=== PATIENT | female | born 1930 | race Caucasian/White ===

== ENCOUNTER 2016-11-17 06:25 | Day surgery (SDC) | payer OTHER ==
[~2016-11-17] VITALS: Ht 167.6 cm; Wt 72.0 kg
[2016-11-17] MEDS ORDERED: IOHEXOL 350 MG/ML 100 ML BTL (for Cath Lab) OTHER ONE (06:26)
[2016-11-17 07:21] VITALS: BP 125/73; PULSE 65; RESP 16; TEMP 98.2; O2SAT 94
[2016-11-17 07:31] LABS: AUTOMATED NEUTROPHIL # 3.7 TH/MM3 (1.8-7.7); BASOPHIL % 0.3 % (0.0-2.0); EOSINOPHIL # 0.1 TH/MM3 (0-0.4); HEMATOCRIT 35.2 % (35.0-46.0); HEMO FLAGS DIFF FINAL; LYMPH % 24.3 % (9.0-44.0); LYMPHOCYTE # 1.4 TH/MM3 (1.0-4.8); MEAN CELL VOLUME 85.2 FL (80.0-100.0); MEAN CORPUSCULAR HGB CONC 32.9 % (32.0-36.0); MONO % 10.9 % (0.0-8.0); NEUT % 63.5 % (16.0-70.0); PLATELET COUNT 131 TH/MM3 (150-450); RED BLOOD COUNT 4.13 MIL/MM3 (4.00-5.30); RED CELL DISTRIBUTION WIDTH 15.8 % (11.6-17.2); WHITE BLOOD COUNT 5.8 TH/MM3 (4.0-11.0)
[2016-11-17] MEDS ORDERED: SUCR1TAB PO (07:37)
[2016-11-17] MEDS ORDERED: ASPI81TA81 (07:37)
[2016-11-17] MEDS ORDERED: PANT40TA3 PO (07:37)
[2016-11-17] MEDS ORDERED: BUME0.5T PO (07:37)
[2016-11-17] MEDS ORDERED: VITA250T3 PO (07:37)
[2016-11-17] MEDS ORDERED: NITR1SUB3 SL (07:37)
[2016-11-17] MEDS ORDERED: HYDR-3580 PO (07:37)
[2016-11-17] MEDS ORDERED: ATOR20TA15 PO (07:37)
[2016-11-17] MEDS ORDERED: LOSA100T PO (07:37)
[2016-11-17] MEDS ORDERED: METF500T PO (07:37)
[2016-11-17] MEDS ORDERED: ALPR0.5T3 PO (07:37)
[2016-11-17] MEDS ORDERED: CARV25TA PO (07:37)
[2016-11-17] MEDS ORDERED: TYLE325T PO (07:37)
[2016-11-17] MEDS ORDERED: VITA2000 PO (07:37)
[2016-11-17] MEDS ORDERED: FERR325T8 PO (07:37)
[2016-11-17 07:38] LABS: APTT (PATIENT) 26.1 SEC (24.3-30.1); PROTHROMBIN TIME - PATIENT 11.2 SEC (9.8-11.6)
[2016-11-17 07:49] LABS: BICARBONATE 26.6 MEQ/L (21.0-32.0); POTASSIUM 3.7 MEQ/L (3.5-5.1)
[2016-11-17 08:15] LABS: BACTERIA, URINE MOD /hpf; BLOOD, URINE TRACE (NEG); COMMENT (UR) CULTURE INDICATED; CULTURE IF INDICATED CULTURE INDICATED; GLUCOSE,URINE NEG (NEG); HYALINE CAST, URINE 1 /lpf (RARE); KETONE, URINE NEG (NEG); MUCUS URINE FEW /lpf (OCC); NITRITE,URINE NEG (NEG); RENAL EPITHELIAL CELLS <1 /hpf; SQUAMOUS EPITHELIAL CELL URINE 3 /hpf (0-5); TRANSITIONAL EPI CELLS, URINE <1 /hpf; URINE COLOR YELLOW (YELLW/STRAW)
[2016-11-17] MEDS ORDERED: diphenhydrAMINE HCL 50 MG CAP PO SCH (08:15)
[2016-11-17] MEDS ORDERED: NS 1000P @30 MLS/HR (KVO) IV SCH (08:15)
[2016-11-17] MEDS ORDERED: HEPARIN-NS/PF INJ 1,000 ML ONE (09:18)
[2016-11-17] MEDS ORDERED: MIDAZOLAM HCL 2 MG/2 ML VIAL ONE (09:19)
[2016-11-17] MEDS ORDERED: NITROGLYCERIN INJ 5 ML ONE (09:19)
[2016-11-17] MEDS ORDERED: VERAPAMIL HCL 5 MG/2 ML VIAL ONE (09:19)
[2016-11-17] MEDS ORDERED: HEPARIN SODIUM - IV 10,000 UNITS/10 ML VIAL ONE (09:19)
--- NOTE | 2016-11-17 10:08 | RADRPT ---
EXAM DATE/TIME: 11/17/2016 08:40 [place] COMPARISON: No previous studies available for comparison. INDICATIONS : Pre op TAVR. MEDICAL HISTORY : Hypertension. Diabetes mellitus type II. SURGICAL HISTORY : Pacemaker. CABG. TAVR. ENCOUNTER: Initial ACUITY: 1 day PAIN SCORE: 0/10 LOCATION: Bilateral chest FINDINGS: The lungs are clear without infiltrate, nodule, or mass. There is no appreciable pleural effusion fo r technique. Heart and mediastinum are unremarkable. Left subclavian transvenous pacer wires are pre sent with tips in the right atrium and right ventricle. There is evidence for prior median sternotomy . CONCLUSION: No acute cardiopulmonary disease. Misael Hearn MD on November 17, 2016 at 9:59 Board Certified Radiologist. This report was verified electronically.
[2016-11-17] MEDS ORDERED: SODIUM CHLOR 0.9% 1000 ML INJ 1,000 ML IV SCH (10:20)
--- NOTE | 2016-11-17 10:20 | CATHPROC ---
[facility] HIS Report Study Information Study Number Admission Scheduled Start Study Start [id number] Nov 17 2016 6:25AM 11/17/2016 Nov 17 2016 9:14AM Study Type [place] Service Left/Possible PCI Cardiac Catheterization Admit Source Facility Department Other [facility] - Picture Copyist Physician and Clinical Staff Initial MD Peralta, Keanu Esthetician Makeup Artist Jacquelin Ramirez,RN Additional Keanu Fernando Recorder Alyssa Covarrubias,RT(R) Scrub Kenji Reddy RCIS(BS) Procedures Performed Procedure Location (Site) Vessel Name Coronary Angiograms LCA Left Coronary Coronary Angiograms RCA Right Coronary Coronary Angiograms THOMAS-LAD Left Coronary Coronary Angiograms SVG-OM CIRC Coronary Angiograms SVG-RCA Right Coronary L Heart Cath Wire insertion Radial (left) Radial Art. Equipment Time Sand Caster Apprentice Description Size Mfg Part Number Used/Scraped TRANSDUCER, TRUWAVE [id number] 09:26 ALEXIS DE DIOS * Used W/STOCKCOCK *[id number] [id number] *[id number] 534-518T *[id number] [id number] *[id number] [id number] *[id number] [id number] *[id number] 09:26 [employer] PACK, CCL CUSTOM * Used *[id number] 09:26 [employer] SUPPORT, ARTERIAL ADULT 94869 *[id number] Used BAND, RADIAL COMPRESSION TR [id number] 10:03 [employer] MEDICAL 29CM Used LARGE 29 *[id number] 09:26 [employer] WIRE, 3MMJ .035 180CM 180CM Used *[id number] 09:26 NAMIC MANIFOLD, 4 PORT * Used *[id number] 09:26 [employer] OMNIPAQUE, 350 MG, 150ML 150ML [id number] Used [id number] 09:26 [employer] BLANKET,WARM AIR CCL * Used *[id number] SHEATH, FR6 TRANSRADIAL RM*[id number] 09:26 [employer] FR 6 Used SLENDER 10CM *[id number] History: Current Medications Medication Dosage/Unit Route Frequency Last Date/Time Taken ASA Statins (any) Beta Mary History: Risk Factors Family History of Hypertension Dyslipidemia Previous SD Previous Heart Failure Premature CAD Yes Yes Yes No No Prior Valve Prior PCI Prior CABG Prior CABGDate Surgery No No Yes 03/12/2012 Cerebrovascular Peripheral Artery Chronic Lung On Dialysis Diabetes Diabetes Therapy Disease Disease Disease No No No No Yes Oral History: Stress Tests Stress or Imaging Studies Performed No Labs Hgb (g/dl) Hct (%) WBC (l/cumm) Platelets (thousands) 11.60-17.00 35.00-51.00 4.00-11.00 150.00-450.00 11.6 35.2 5.8 131 Glucose (mg/dl) BUN (mg/dl) Creatinine (mg/dl) BUN:Creatinine (1:x) 74.00-106.00 7.00-18.00 0.50-1.30 10.00-20.00 163 17 1.0 17 Na (meq/l) K (meq/l) 136.00-145.00 3.50-5.10 140 3.7 INR (PTT:PT) 0.90-1.10 1 CPK-MB (ng/ML) 0.50-3.60 Not Drawn Medication Medication Total Dose (Bolus/Oral) Medication Total Dosage/Unit 1% XYLOCAINE 20 mL FENTANYL 25 mcg OXYGEN 2 l/min RADIAL COCKTAIL 5 mL (Bolus) VERSED 1 mg Medications (Bolus/Oral) Medication Time Given Dosage/Unit Administered By Reason OXYGEN 11/17/2016 9:35:51 AM 2 l/min Jacquelin Ramirez 2 l/min OXYGEN given by Jacquelin Ramirez, CONRADO via Nasal. Ordered by Keanu Peralta. VERSED 11/17/2016 9:44:23 AM 1 mg Jacquelin Ramirez 1 mg VERSED given by Jacquelin Ramirez, CONRADO via Peripheral IV. Ordered by Keanu Peralta. 1% XYLOCAINE 11/17/2016 9:45:07 AM 20 mL Keanu Peralta 20 mL 1% XYLOCAINE given in lab by Keanu Peralta in Left Radial via Subcutaneous. FENTANYL 11/17/2016 9:45:33 AM 25 mcg Jacquelin Ramirez 25 mcg FENTANYL given by Jacquelin Ramirez, CONRADO via Peripheral IV. Ordered by Keanu Peralta. Ntg 200mcg Verapamil 2.5mg Heparin RADIAL COCKTAIL 11/17/2016 9:47:30 AM 5 mL (Bolus) Keanu Peralta 2500U 5 mL (Bolus) RADIAL COCKTAIL given in lab by Keanu Peralta via Radial. Using [Solution Name]. Heidy son: Ntg 200mcg Verapamil 2.5mg Heparin 2500U. Medication (Drip) Medication Time Given Dosage/Unit Concentration/Unit Diluent (ml) Solution IV Solutions 11/17/2016 9:29:19 AM 0 mL (IV) 500 NaCl .9 Patient arrived on IV Solutions in Left Antecubital via Peripheral IV. Pump/Drip Flow = 20 ml/hr usin g NaCl .9. Ordered by Keanu Peralta. Initial Case Assessment Cardiovascular HR Rhythm NIBP Chest Pain 73 paced 144/66 0 Edema Present Skin color Skin None Normal Warm Circulatory - Right Pulses Dorsalis Pedis Femoral 2 2 Scale (0,1,2,3,4,d) Circulatory - Left Pulses Dorsalis Pedis Femoral 2 2 Scale (0,1,2,3,4,d) Circulatory - Lower Extremities Color Lower Right Color Lower Left Normal Normal Neurological State Oriented to time-place- Alert Moves all extremities person Respiration - General Respiration Rate SpO2 (%) (B/min) 18 95 Chronological Log Time Study Chronological Log 9:05:35 Patient arrived via Bed. 9:05:40 Patient Name, D.O.B, / Armband Verified By R.N. 9:06:47 Pre-op and post- op instructions given; patient acknowledges understanding of instructions . 9:14:27 Reference ECG taken 9:14:45 Consent signed by the physician and the patient and verified by the Picture Copyist staff. Vitals capture started with the following parameters, Patient=Adult, Interval=5 min, Initial Czbzxqsz=860 mmHg, 9:14:53 Deflation Rate=5 mmHg, Cuff placed on Right Arm 9:15:32 HR=77 bpm, JYBX=073/76 mmhg, SpO2=95 %, Resp=8 B/min, Pain=0, Bonita=10, Roque=2 9:20:35 HR=71 bpm, MDTA=612/74 mmhg, SpO2=93.0 %, Resp=19 B/min, Pain=0, Bonita=10, Roque=2 9:25:28 HR=72 bpm, DANK=170/86 mmhg, SpO2=92.0 %, Resp=18 B/min, Pain=0, Bonita=10, Roque=2 9:27:26 Verbal Stimulation=2 Physical Stimulation=2 Airway=2 Respiration=2 TOTAL=8. (0=absent, 1=l imited, 2=present) 9:27:46 Allens test performed on the left radial and ulnar artery by Sudeep with a positive result 9:28:05 Pressure channel 1 zeroed. 9:29:01 Patient has been NPO for More than 6Hrs. 9:29:03 Skin Breakdown-none 9:29:09 Patient Warmer Placed on the Table. 9:29:12 A # 20 IV was noted in the Antecubital (left). Grade = 0 Patient arrived on IV Solutions in Left Antecubital via Peripheral IV. Pump/Drip Flow = 20 ml/hr using NaCl .9. Ordered 9:29:19 by Keanu Peralta. 9:29:45 History and physical on the chart or being dictated. Assessment: Initial Case, HR=73 BPM, Rhythm=paced, RVVK=279/66 mmhg, Chest Pain=0, Edema=None, Color=Normal, Skin = Warm Right Pulses: Jesu Ped=2, Femoral=2 Left Pulses: Jesu Ped=2, Femoral=2 9:29:47 Lower Right Extremities: Color=Normal Lower Left Extremities: Color=Normal Neurological: State=Alert, Ox3, DAMON Respiration: Resp=18 B/min, SpO2=95 % 9:30:35 HR=72 bpm, DFZP=687/66 mmhg, SpO2=92.0 %, Resp=19 B/min, Pain=0, Bonita=10, Roque=2 9:33:12 Right groin prepped with 2% chlorhexidine, and with a 3 min. waiting time. 9:35:34 HR=66 bpm, XBUY=094/73 mmhg, SpO2=92.0 %, Resp=19 B/min, Pain=0, Bonita=10, Roque=2 9:35:51 2 l/min OXYGEN given by Jacquelin Ramirez, CONRADO via Nasal. Ordered by Keanu Peralta. 9:36:13 MD paged 9:40:35 HR=60 bpm, MDSZ=022/58 mmhg, SpO2=99.0 %, Resp=18 B/min, Pain=0, Bonita=10, Roque=2 9:41:43 MD arrived. 9:44:23 1 mg VERSED given by Jacquelin Ramirez, RN via Peripheral IV. Ordered by Keanu Peralta. 9:44:55 Case Start 9:44:58 Verbal Stimulation=2 Physical Stimulation=2 Airway=2 Respiration=2 TOTAL=8. (0=absent, 1=ambrose ited, 2=present) 9:45:07 20 mL 1% XYLOCAINE given in lab by Keanu Peralta in Left Radial via Subcutaneous. 9:45:33 25 mcg FENTANYL given by Jacquelin Ramirez, RN via Peripheral IV. Ordered by Keanu Peralta . 9:45:34 HR=64 bpm, LKWF=984/72 mmhg, SpO2=98.0 %, Resp=20 B/min, Pain=0, Bonita=10, Roque=2 5 mL (Bolus) RADIAL COCKTAIL given in lab by Keanu Peralta via Radial. Using [Solution Name] . Reason: Ntg 9:47:30 200mcg Verapamil 2.5mg Heparin 2500U. 9:47:33 Access site was Radial Artery. left 9:47:42 A wire was inserted via Radial (left). A SHEATH, FR6 TRANSRADIAL SLENDER 10CM FR 6 was advanced into the Radial (left) using the Percut aneous 9:47:54 technique. A JR 5.0 INFINITI CATHETER FR 5 was advanced over a wire. OMNIPAQUE, 350 MG, 150ML 150ML was use d for 9:48:25 injections. 9:50:37 HR=67 bpm, LYEP=980/66 mmhg, SpO2=95.0 %, Resp=20 B/min, Pain=0, Bonita=10, Roque=2 9:50:37 The THOMAS-LAD was injected and visualized at various angles. OMNIPAQUE, 350 MG, 150ML 150ML u sed. 9:52:48 The RCA was injected and visualized at various angles. OMNIPAQUE, 350 MG, 150ML 150ML used. After removing the current catheter a MPA-2 INFINITI CATHETER FR 5 was advanced over a WIRE, 3MM J .035 180CM 9:54:33 180CM. 9:55:34 HR=66 bpm, OQWV=860/63 mmhg, SpO2=96.0 %, Resp=19 B/min, Pain=0, Bonita=10, Roque=2 9:56:19 The SVG-RCA was injected and visualized at various angles. OMNIPAQUE, 350 MG, 150ML 150ML us ed. After removing the current catheter a JL 4.0 INFINITI CATHETER FR 5 was advanced over a WIRE, 3M MJ .035 180CM 9:59:15 180CM. Recorded Pressure: Ao, HR=60, Condition=Condition 1 9:59:53 (Aorta) Ao 117/50/75 10:00:06 The LCA was injected and visualized at various angles. OMNIPAQUE, 350 MG, 150ML 150ML use d. After removing the current catheter a AL 1 INFINITI CATHETER FR 5 was advanced over a WIRE, 3M MJ .035 180CM 10:00:24 180CM. 10:00:31 HR=68 bpm, ZAPZ=090/76 mmhg, SpO2=96.0 %, Resp=23 B/min, Pain=0, Bonita=10, Roque=2 10:02:10 The SVG-OM was injected and visualized at various angles. OMNIPAQUE, 350 MG, 150ML 150ML u sed. 10:03:22 Catheter was removed 10:04:46 Case End 10:05:34 HR=65 bpm, YIER=668/60 mmhg, SpO2=97.0 %, Resp=17 B/min, Pain=0, Bonita=10, Roque=2 Radial Compression Device Used. 12 mLs of air placed in BAND, RADIAL COMPRESSION TR LARGE 29 2 9CM. Affected 10:09:01 hand 99 % O2 saturation. 10:09:19 Sterile dressing applied to site 10:09:20 No case complications noted. 10:09:21 Cine recording checked. 10::24 Bedside Report will be given. 10::27 Contrast Scanned 10:: A Left Heart Cath was performed. 10:10:17 Vitals capture stopped. End Study - Contrast Media Used In Study Contrast Total Opened (mL) Total Used (mL) Total Wasted (mL) Omnipaque 100 100 0 End Study - Maximum Contrast Load Max Contrast Load (mL) 360.0 End Study - Radiation Exposure Fluoro Time (minutes) 2.0 End Study - Sheaths Sheaths Pulled By Sheath Hold Time (min) Kenji Reddy End Study - Patient Disposition Complications Transferred To No Outpatient Bed
[2016-11-17] MEDS ORDERED: MISC INFORMATION XX ONE (10:30)
--- NOTE | 2016-11-17 11:18 | EKG ---
Date Performed: 11/17/2016 Time Performed: 07:22:24 PTAGE: 85 years EKG: Possible ventricular paced rhythm Abnormal ECG PREVIOUS TRACING : 03/27/2002 03.00 Compared to previous tracing, ventricular paced rhythm has replaced Sinus rhythm . DOCTOR: Mirza Barbosa Interpretating Date/Time 11/17/2016 11:17:39
--- NOTE | 2016-11-17 11:35 | MA ---
cc: BALLESTEROSMahadKATIEYAMINI NICKERSON DATE 11/17/2016 DATE OF 1930 PROCEDURE PERFORMED 1. Left heart catheterization 2. Selective right and left coronary angiography 3. SVG and THOMAS angiography APPROACH Left transradial INDICATION Preoperative evaluation for aortic valve replacement. PROCEDURE DESCRIPTION Consent signed. The patient was brought into the cardiac laboratory apparatus glass blower in A fasting state. The left wrist was prepped and draped in A sterile fashion. using 1% lidocaine for local anesthesia and a micropuncture kit, a 6-[place] sheath was inserted into the left radial artery. Antispasmodic cocktail given. Then selective right and left coronary angiography was performed with a JR-4 and a JL -4 diagnostic catheters. Angiography of the saphenous vein graft and the THOMAS graft was done with a JR-4 with a multiple purpose catheter and an AL-1. Angiography was taken in multiple views. The patient tolerated the procedure well without complications. Estimated blood loss less than 30 cc. Total contrast used 80 cc. All catheters were exchanged over a wire. Sedation was administered by nursing. The left radial access site was closed with a TR band. RESULTS The aortic pressure was 170/50 with a mean of 75. 1. Left main. The left and left main has 30% lesion proximally. It is mildly calcified. It is giving off the left circumflex and LAD and a ramus vessel. 2. LAD. The LAD is 100% occluded in its mid segment. It is diffusely diseased. It has a focal 60% lesion proximally and another 50% sequential lesion. It has one diagonal which is 100% occluded. 3. The left circumflex is 100% occluded. 4. The right coronary artery is 100% occluded in its mid segment. It is giving off two RV branches which are patent, however, diffusely diseased. GRAFT ANGIOGRAPHY SVG to RCA patent, however, has a 50% lesion in its mid segment and another 90% lesion at the position with the PDA. This graft is small measuring at least 2 mm. SVG to OM. This graft is patent. It has 40% lesion proximally. This graft seems to be a sequential graft taking off at the same point where the SVG to right coronary artery is going. It is touching at the OM vessel which is patent , but diffusely diseased and is giving collaterals to the right coronary artery as well as giving retrograde flow to the left circumflex artery. THOMAS to the LAD. The THOMAS to LAD is patent with SUBHA-III flow with touching down. The LAD in its proximal segment is also giving blood flow to the first and second diagonal vessels. CONCLUSION - Severe three-vessel coronary artery disease with 3/3 graft patent grafts - Severe symptomatic aortic stenosis. RECOMMENDATIONS The patient will be evaluated with the [facility] structural heart valve team. She will go to [facility] for post cath care. She will get IV fluids for hydration and she will continue the TAVR workup. MD DAVID Alexander/BERTHA /10:09 AM /11:16 AM MTDLexii
--- NOTE | 2016-11-17 12:12 | PD.CAR.PN ---
CVT Progress Note Subjective/Hospital Course: pt seen and eval for TAVR candidate sts data discussed with pt RISK SCORES About the STS Risk Calculator Procedure: AV Replacement Risk of Mortality: 10.902% Morbidity or Mortality: 35.246% Long Length of Stay: 21.561% Short Length of Stay: 10.854% Permanent Stroke: 3.15% Prolonged Ventilation: 31.77% DSW Infection: 0.266% Renal Failure: 11.92% Reoperation: 9.281% Objective: Vital Signs Date Time Temp Pulse Resp B/P (MAP) Pulse Ox O2 Delivery O2 Flow Rate FiO2 11/17/16 07:21 98.2 65 16 125/73 (90) 94 Labs: Laboratory Tests Test 11/17/16 06:55 11/17/16 07:00 White Blood Count 5.8 TH/MM3 (4.0-11.0) Red Blood Count 4.13 MIL/MM3 (4.00-5.30) Hemoglobin 11.6 GM/DL (11.6-15.3) Hematocrit 35.2 % (35.0-46.0) Mean Corpuscular Volume 85.2 FL (80.0-100.0) Mean Corpuscular Hemoglobin 28.0 PG (27.0-34.0) Mean Corpuscular Hemoglobin Concent 32.9 % (32.0-36.0) Red Cell Distribution Width 15.8 % (11.6-17.2) Platelet Count 131 TH/MM3 (150-450) Mean Platelet Volume 8.5 FL (7.0-11.0) Neutrophils (%) (Auto) 63.5 % (16.0-70.0) Lymphocytes (%) (Auto) 24.3 % (9.0-44.0) Monocytes (%) (Auto) 10.9 % (0.0-8.0) Eosinophils (%) (Auto) 1.0 % (0.0-4.0) Basophils (%) (Auto) 0.3 % (0.0-2.0) Neutrophils # (Auto) 3.7 TH/MM3 (1.8-7.7) Lymphocytes # (Auto) 1.4 TH/MM3 (1.0-4.8) Monocytes # (Auto) 0.6 TH/MM3 (0-0.9) Eosinophils # (Auto) 0.1 TH/MM3 (0-0.4) Basophils # (Auto) 0.0 TH/MM3 (0-0.2) CBC Comment DIFF FINAL Differential Comment Prothrombin Time 11.2 SEC (9.8-11.6) Prothromb Time International Ratio 1.0 RATIO Activated Partial Thromboplast Time 26.1 SEC (24.3-30.1) Urine Color YELLOW (YELLW/STRAW) Urine Turbidity HAZY (CLEAR) Urine pH 5.0 (5.0-8.5) Urine Specific [place] 1.010 (1.002-1.035) Urine Protein NEG mg/dL (NEG-TRACE) Urine Glucose (UA) NEG mg/dL (NEG) Urine Ketones NEG mg/dL (NEG) Urine Occult Blood TRACE (NEG) Urine Nitrite NEG (NEG) Urine Bilirubin NEG (NEG) Urine Urobilinogen LESS THAN 2.0 MG/DL (LESS Urine Leukocyte Esterase LARGE (NEG) Urine RBC 6 /hpf (0-3) Urine WBC 26 /hpf (0-5) Urine WBC Clumps RARE (NONE) Urine Squamous Epithelial Cells 3 /hpf (0-5) Urine Transitional Epithelial Cells <1 /hpf (NONE) Urine Renal Epithelial Cells <1 /hpf (NONE) Urine Bacteria MOD /hpf (NONE) Urine Hyaline Casts 1 /lpf (RARE) Urine Mucus FEW /lpf (OCC) Microscopic Urinalysis Comment CULTURE INDICATED Blood Urea Nitrogen 17 MG/DL (7-18) Creatinine 1.06 MG/DL (0.50-1.00) Random Glucose 163 MG/DL (74-106) Calcium Level 8.4 MG/DL (8.5-10.1) Sodium Level 140 MEQ/L (136-145) Potassium Level 3.7 MEQ/L (3.5-5.1) Chloride Level 106 MEQ/L (98-107) Carbon Dioxide Level 26.6 MEQ/L (21.0-32.0) Anion Gap 7 MEQ/L (5-15) Estimat Glomerular Filtration Rate 49 ML/MIN (>89) Albumin 3.9 GM/DL (3.4-5.0) Nasal Screen MRSA (PCR) MRSA NOT DETECTED (NOT Result Diagram: 11/17/16 0655 11/17/16 0655 Xenia Hernandez Nov 17, 2016 12:12
--- NOTE | 2016-11-17 12:21 | ECHRPT ---
Indication: PRE-OP TAVR CONCLUSIONS The left ventricular systolic function is moderately reduced with an estimated ejection fraction in the range of 40-45%. Normal left ventricular size. No regional wall motion abnormalities are present. Mild mitral valve regurgitation. Severe thickening of the aortic valve leaflets. Severe aortic valve stenosis. Aortic valve area is 0.71 cm. Max Velocity Across Aortic Valve 4.1 Aortic valve mean gradient is 32 mmHg. AV Velocity Ratio 0.20 Lhwe-lq-zyfljvfk aortic valve regurgitation. There is trace tricuspid valve regurgitation. The estimated pulmonary arterial pressure is 33 mmHg. BP: 125 / 73 HR: 65 Rhythm: MEASUREMENTS (Male / Female) Normal Values Technical Quality: 2D ECHO LVOT Diameter 1.8 cm LV Ejection Fraction MOD 4C 42.0 % LV Cardiac Index MOD 4C 1484.8 cm/minm LV Ejection Fraction 4C AL 43.2 % LV Cardiac Index 4C AL 1562.7 cm/minm DOPPLER AV Peak Velocity 416.0 cm/s AV Peak Gradient 69.2 mmHg AV Mean Gradient 32.0 mmHg AV Velocity Time Integral 90.0 cm LVOT Peak Velocity 87.2 cm/s LVOT Peak Gradient 3.0 mmHg LVOT Velocity Time Integral 25.0 cm LVOT Cardiac Index 2248.9 cm/minm AV Area Cont Eq vti 0.7 cm AV Area Cont Eq pk 0.5 cm MV Area PHT 2.8 cm Mitral E Point Velocity 91.3 cm/s Mitral A Point Velocity 116.0 cm/s Mitral E to A Ratio 0.8 TR Peak Velocity 242.0 cm/s TR Peak Gradient 23.4 mmHg FINDINGS LEFT VENTRICLE The left ventricular systolic function is moderately reduced with an estimated ejection fraction in the range of 40-45%. Normal left ventricular size. No regional wall motion abnormalities are present. RIGHT VENTRICLE Normal right ventricular size and systolic function. LEFT ATRIUM The left atrial size is normal. RIGHT ATRIUM The right atrial size is normal. ATRIAL SEPTUM Normal atrial septal thickness without atrial level shunting by limited color doppler interrogation. AORTA The aortic root and proximal ascending aorta are normal in size on limited imaging. MITRAL VALVE Mild mitral valve regurgitation. AORTIC VALVE Severe thickening of the aortic valve leaflets. Severe aortic valve stenosis. Aortic valve area is 0.71 cm. Aortic valve mean gradient is 32 mmHg. Sitk-ui-lbnoumbd aortic valve regurgitation. TRICUSPID VALVE There is trace tricuspid valve regurgitation. The estimated pulmonary arterial pressure is 33 mmHg. PULMONARY VALVE The pulmonary valve is not well visualized. VESSELS The inferior vena cava is normal in size. PERICARDIUM No pericardial effusion. Keanu Peratla MD (Electronically Signed) Final Date:17 November 2016 12:20
[2016-11-17] MEDS ORDERED: CIPR250T52 PO (12:27)
--- NOTE | 2016-11-17 14:30 | MB ---
cc: JESSICA LANG MD DATE OF CONSULTATION 11/17/2016 REASON FOR CONSULTATION This is an 85-year-old female with a history of aortic stenosis who is being followed. She had a mean gradient of 25 in August of 2014. The mean gradient worsening to 32 mmHg, also her EF went from 60 down to 48%. Her peak gradient was 56 with a valve area of 0.8 cm2. The patient underwent cardiac catheterization to evaluate coronary disease. She has had a history of a prior coronary artery bypass graft in 2012, by Dr. Melendrez. Surgery was CABG times three THOMAS to the LAD, the OM to the RCA. The a cath revealed patent graft to the LAD, patent graft to the circ. The RCA had a 60% lesion in the saphenous vein graft. The patient's symptoms have included shortness of breath on minimal exertion not at rest, [place] Heart class III. Denied having any chest pain, palpitations or syncope. No coughing. PAST MEDICAL HISTORY Significant for: 1. Coronary artery disease 2. Aortic stenosis with worsening mean gradient and also lower EF from 60-48%. 3. Cardiomyopathy 4. Carotid artery disease 5. History of complete AV block. 6. Diabetes mellitus 7. Hyperlipidemia 8. Hypertension 9. Moderate mitral regurgitation 10. History of non-sustained V-tach in August of 2016. She is pacer dependent. PAST SURGICAL HISTORY Surgeries include: 1. Cholecystectomy 2. She has had a pacer in situ 2007 with a generator change out August 2015. She has a dual-chamber pacemaker. 3. Status post coronary artery bypass graft x3 [address] Melendrez. ALLERGIES No known allergies. MEDICATIONS Home meds include: 3. Xanax 4. Aspirin 5. Atorvastatin 6. Bumex 7. Coreg 8. Ferrous sulfate 9. She takes [place] p.r.n. 10. Lidocaine patch 11. Losartan 100 12. Metformin 500 b.i.d. 13. Nitro p.r.n. 14. Protonix 15. Carafate one gram twice a day 16. Voltaren topical gel FAMILY HISTORY Father at 59, history of hypertension. Mother at 65. The patient , two children. No tobacco or alcohol. Lives alone. She does not drive, however, she cares for herself. She does her ADLs. She cooks and she cleans. She walks on a regular basis. She did undergo frailty score which was a 2/4, failed the walk portion and the supervisor salvage strength. REVIEW OF SYSTEMS GENERAL: No night sweats, fever, heat and cold intolerance. SKIN: No psoriasis, itching or hives. HEENT: No blurred vision or hearing loss. She does wear dentures. NECK: Supple. RESPIRATORY: Positive for dyspnea with exertion. CARDIOVASCULAR: No chest pain. No paroxysmal nocturnal dyspnea. GASTROINTESTINAL: No diarrhea or vomiting. GENITOURINARY: No burning, frequency, or urgency seen. ROBOTICS SYSTEMS ENGINEER: No history of TIA, CVA, seizure disorder. ENDOCRINE: Positive for diabetes. PHYSICAL EXAM On exam, blood pressure 125/70, heart rate 65, temperature max 98.2. GENERAL: The patient is awake and alert. She is from [place], speaks very little Sudanese, but her son was at the bedside to help coordinate the conversation and translate. The patient is alert and oriented in no acute distress. HEAD: Head is normocephalic, atraumatic. EYES: Pupils equal and reactive. EARS, NOSE, AND THROAT: Oral mucosa pink, moist. NECK: Supple. No JVD. HEART: Heart sounds S1-S2 with a grade 3/4 systolic murmur best noted at the left sternal border. LUNGS: Clear to auscultation. No wheezes, rales or rhonchi. ABDOMEN: Soft, nontender. No masses or organomegaly. EXTREMITIES: No cyanosis, clubbing or edema. LABORATORY FINDINGS Shows hemoglobin of 11, hematocrit 35, white cell count 5.8, platelet count 131. Sodium 140, potassium 3.7, BUN 17, creatinine 1.06, INR 1.0. Urine shows large leukoesterase, moderate bacteria. Micro is pending. Chest x-ray is unremarkable. Repeat echo is pending. CT TAVR is pending. STS data includes risk mortality of 10.9, morbidity mortality 35, redo coronary artery bypass grafting. At this time, the patient has multiple risk factors including advanced age prior sternotomy with coronary artery bypass graft in 2012, cardiomyopathy EF of 48%, diastolic dysfunction. Also, other comorbidities include diabetes mellitus and frailty score 2/4. At this time, recommendations is for transcatheter aortic valve replacement due to her above comorbidities, her frailty score and her STS scoring. In the meantime, we will order a prescription for some Ciprofloxacin for her UTI. Dictated by Trini Hernandez, LORETTA Jessica BOTELLO /12:14 PM /2:18 PM
[2016-11-17] MEDS ORDERED: IOHEXOL 350 MG/ML 10 ML VIAL (for RAD DIAG) IVCONTRAST ONE (15:06)
--- NOTE | 2016-11-17 15:58 | RADRPT ---
EXAM DATE/TIME: 11/17/2016 14:24 [place] COMPARISON: No previous studies available for comparison. INDICATIONS : Pre op TAVR. IV CONTRAST: 91 cc Omnipaque 350 (iohexol) IV RADIATION DOSE: 10.87 CTDIvol (mGy) MEDICAL HISTORY : Hypertension. Diabetes mellitus type 2. Cardiovascular disease SURGICAL HISTORY : None. ENCOUNTER: Initial ACUITY: 1 day PAIN SCALE: 0/10 LOCATION: Bilateral chest TECHNIQUE: Volumetric scanning was performed using a multi-row detector CT scanner. The data was post processed with a variety of visualization algorithms including full volume maximum intensity projection, multi -planar sliding thin slab reformation, curved planar reformation, and surface rendering techniques. Using automated exposure control and adjustment of the mA and/or kV according to patient size, radiat ion dose was kept as low as reasonably achievable to obtain optimal diagnostic quality images. DIC OM format image data is available electronically for review and comparison. FINDINGS: CARDIAC: Extensive coronary calcifications are noted involving left main, circumflex, LAD and right coron javed.. There is no pericardial effusion AORTIC ROOT/VALVE: 3 valve cusp evident with extensive calcifications.. The aortic root measures 2.9 cm. Scattered calcifications are seen in the ascending and descend ing aorta and minimal soft plaque evident. The descending aorta measures 2.6 cm. . THORACIC AORTA: Extensive vascular calcifications are seen at the origin of the left subclavian. The right innominat e artery and left carotid are spared.. ABDOMINAL AORTA: Extensive calcifications are present in in the abdominal aorta without aneurysmal dilatation. Plaque extends to both common iliacs. The distal aorta measures 1.5 cm. CELIAC ARTERY: Large plaque is present at the origin SMA: Minimal calcific plaque is seen at the origin. RIGHT RENAL ARTERY: Extensive calcification is seen at the right origin probably hemodynamically significant. The kidney is of normal size. LEFT RENAL ARTERY: Extensive plaque is evident probably significant. Kidneys of normal size. RIGHT COMMON ILIAC: Minimal calcification is present at the origin. There is minimal calcification in the right common f emoral. The right common femoral and the largest posterior plaque arising lumen by 50%. LEFT COMMON ILIAC: Calcific plaque is seen in the external iliac and common femoral liver large plaque posteriorly just above the profunda SMA bifurcation. THORAX: There are no suspicious lung lesions identified. ABDOMEN: There is thrombus identified in the superior mesenteric vein and in the mid portal vein. There is hazel wel thickening in the second portion of the duodenum. The liver is somewhat small and nodular. Ther e is symmetrical renal function without renal mass. PELVIS: Extensive gastric calcifications are noted. ROSA is evident. Fibroid uterus is noted. CONCLUSION: Findings as described above. There is small nodular liver with some portal thrombosis identifie d and is partially occluding. Bowel wall thickening second portion of duodenum. Jonny Peralta MD FACR on November 17, 2016 at 15:11 Board Certified Radiologist. This report was verified electronically.
--- NOTE | 2016-11-22 10:05 | RSPPFT ---
DATE OF PROCEDURE: 11/17/16 COMMENTS: Spirometry with FVC of 1.88, FEV1 of 1.4, FEV1/FVC ratio at 79%. Post-bronchodilator study was not performed. IMPRESSION: 1. Decreased flow rates. 2. No gross obstruction. 3. Possible airways restriction. 4. If clinically warranted, lung volumes may be helpful.
== END 2016-11-17 16:00 | disposition home or self-care (01) ==
LOC: HDOC 06:25 → HDIC 06:26 → HDOC 16:00
PROVIDERS: ATTEND Radiology Vascular & Interventional Radiology
DX: I25.10 Atherosclerotic heart disease of native coronary artery without angina pectoris (principal); I25.82 Chronic total occlusion of coronary artery; I35.0 Nonrheumatic aortic (valve) stenosis; I10 Essential (primary) hypertension; I42.9 Cardiomyopathy, unspecified; E11.9 Type 2 diabetes mellitus without complications; E78.5 Hyperlipidemia, unspecified; Z95.1 Presence of aortocoronary bypass graft; Z95.0 Presence of cardiac pacemaker; Z79.82 Long term (current) use of aspirin; Z79.84 Long term (current) use of oral hypoglycemic drugs; Z79.899 Other long term (current) drug therapy
CPT/HCPCS: 71020; 74174; 80048; 81001; 82040; 85025; 85610; 85730; 86850; 86900; 86901; 87077; 87086; 87186; 87641; 93005; 93306; 93459; 94010; C1769; C1893; J1644; J2250; J3010; Q9967; 93454

== ENCOUNTER 2016-12-27 07:40 | Inpatient (IN) | payer OTHER, MEDICARE ==
[2016-12-27] VITALS (12 sets, daily range): BP systolic 99–165; BP diastolic 38–86; PULSE 61–82; RESP 16–18; TEMP 96.4–98.8; O2SAT 89–99
[~2016-12-27] VITALS: Ht 165.1 cm; Wt 68.0 kg
[~2016-12-27 07:40] MED LIST: ALPR0.5T3 PO; ASPI81TA81; ATOR20TA15 PO; BUME0.5T PO; CARV25TA PO; CIPR250T52 PO; FERR325T8 PO; HYDR-3580 PO; LOSA100T PO; METF500T PO; NITR1SUB3 SL; PANT40TA3 PO; SUCR1TAB PO; TYLE325T PO; VITA2000 PO; VITA250T3 PO
[2016-12-27] MEDS ORDERED: SODIUM CHLOR 0.9% 1000 ML 1,000 ML IV SCH (08:00)
[2016-12-27] MEDS ORDERED: CHLORHEXIDINE GLUCONATE 2 % 1 PACK (2 CLOTHS) TOPICAL PRN ×2 (08:00→08:15)
[2016-12-27] MEDS ORDERED: POVIDONE IODINE 5% (ANTISEPSIS KIT) EACH NARE PRN (08:00)
[2016-12-27] MEDS ORDERED: ASPIRIN 325 MG TAB PO SCH (08:00)
[2016-12-27] MEDS ORDERED: ceFAZolin 2 GM PREMIX 50 ML IV PRN (08:00)
[2016-12-27] MEDS ORDERED: MUPIROCIN 2% OINT 1 APPLIC/GM SYRINGE EACH NARE PRN (08:00)
[2016-12-27] MEDS ORDERED: INSULIN HUMAN REGULAR 1,000 UNITS/10 ML VIAL SQ PRN (08:15)
[2016-12-27] MEDS ORDERED: METOPROLOL TARTRATE 25 MG TAB PO PRN (08:15)
[2016-12-27] MEDS ORDERED: VANCOMYCIN HCL 1000 MG VIAL ONE (08:15)
[2016-12-27] MEDS ORDERED: POVIDONE IODINE 5% (ANTISEPSIS KIT) 4 APPLICATIONS EACH NARE PRN (08:15)
[2016-12-27] MEDS ORDERED: LACTATED RINGER'S 1000 ML IV PRN (08:15)
[2016-12-27] MEDS ORDERED: SODIUM CHLORID 0.9% 500 ML IV PRN (08:15)
[2016-12-27] MEDS ORDERED: SODIUM CHLOR 0.9% 250 ML INJ 250 ML ONE ×2 (08:15→12:00)
[2016-12-27 09:28] LABS: AUTOMATED NEUTROPHIL # 3.7 TH/MM3 (1.8-7.7); BASOPHIL % 0.2 % (0.0-2.0); EOSINOPHIL # 0.1 TH/MM3 (0-0.4); EOSINOPHIL % 1.2 % (0.0-4.0); HEMATOCRIT 32.8 % (35.0-46.0); HEMO FLAGS DIFF FINAL; LYMPH % 21.3 % (9.0-44.0); LYMPHOCYTE # 1.2 TH/MM3 (1.0-4.8); MEAN CELL VOLUME 83.1 FL (80.0-100.0); MEAN CORPUSCULAR HEMOGLOBIN 27.2 PG (27.0-34.0); MEAN CORPUSCULAR HGB CONC 32.8 % (32.0-36.0); MONO % 12.6 % (0.0-8.0); NEUT % 64.7 % (16.0-70.0); PLATELET COUNT 146 TH/MM3 (150-450); RED BLOOD COUNT 3.95 MIL/MM3 (4.00-5.30); RED CELL DISTRIBUTION WIDTH 15.4 % (11.6-17.2); WHITE BLOOD COUNT 5.7 TH/MM3 (4.0-11.0)
[2016-12-27 09:37] LABS: APTT (PATIENT) 26.9 SEC (24.3-30.1); PROTHROMBIN TIME - PATIENT 11.3 SEC (9.8-11.6)
[2016-12-27 09:45] LABS: BICARBONATE 25.4 MEQ/L (21.0-32.0); POTASSIUM 3.3 MEQ/L (3.5-5.1)
[2016-12-27] MEDS ORDERED: POTASSIUM CHLORIDE 20 MEQ CONTROLLED RELEASE TAB PO ONE (10:19)
[2016-12-27] MEDS ORDERED: PROTAMINE SULFATE 50 MG/5 ML VIAL ONE (10:23)
[2016-12-27] MEDS ORDERED: HEPARIN SODIUM - IV 10,000 UNITS/10 ML VIAL ONE (10:23)
--- NOTE | 2016-12-27 10:25 | MH ---
cc: YAMINI JAVED DATE OF ADMISSION: 12/27/2016 DATE OF : 1930 REASON FOR ADMISSION Severe aortic stenosis, admitted for transcutaneous aortic valve replacement. HISTORY OF PRESENT ILLNESS 85-year-old female with a past medical history significant for coronary artery disease status post three-vessel CABG in 2013, diabetes mellitus, hypertension, hyperlipidemia, sick sinus syndrome status post [employer] permanent pacemaker, who presents to the hospital today for an elective transcutaneous aortic valve replacement. The patient has been evaluated. The patient was referred to the valve clinic because of worsening shortness of breath on minimal exertion for months. She reports that she has increased fatigue with minimal exertion. Denies any chest pain, palpitations or syncope. She has been evaluated by the structural heart valve team and she was found to have an STS score of 10.9% and 2/4 frail, which deemed her high risk for open heart aortic valve repair and she has been scheduled for TAVR after a thorough work-up. REVIEW OF SYSTEMS Negative except for what is mentioned in the HPI. PAST MEDICAL HISTORY 1. Severe aortic stenosis. 2. CAD status post CABG x3 in 2012. 3. Permanent pacemaker, [employer]. 4. LV systolic dysfunction. 5. Diabetes type 2. 6. Hypertension. 7. Hyperlipidemia. 8. Incidental finding of portal vein thrombus. 9. Complete AV block. PAST SURGICAL HISTORY 1. Cholecystectomy. 2. Coronary artery bypass graft by Dr. Melendrez. 3. Insertion of AICD, [employer]. SOCIAL HISTORY Denies smoking, alcohol abuse or illicit drug use. FAMILY HISTORY Noncontributory. MEDICATIONS Home medications reviewed. Cardiac home medications: 1. Aspirin. 2. Lipitor. 3. Bumex. 4. Coreg. 5. Losartan. PHYSICAL EXAMINATION VITAL SIGNS: Temperature 97, respiratory rate 20, blood pressure 130/40. O2 sat 100% on room air. GENERAL: She is awake, alert, oriented x3, in no acute distress. She is [place]-speaking only. NECK: No JVD. No carotid bruits. HEART: Regular rate and rhythm. There is an AICD on the left side. There is a 3/6 systolic ejection murmur on the aortic focus. LUNGS: Clear to auscultation bilaterally. ABDOMEN: Soft, nontender, nondistended. Positive bowel sounds. EXTREMITIES: No cyanosis or edema. Pulses throughout. LABORATORY Hemoglobin 10, hematocrit 32, platelet count 146. INR 1. Sodium 140, potassium 3.3, BUN 12, creatinine 0.6. TAVR WORK-UP STS score 10.9%, frailty 2/4. EKG: Ventricular paced rhythm. PFTs showing some degree of restriction, however, no obstructive pulmonary disease. Echocardiogram: Aortic jet velocity 4.1, mean gradient across the aortic valve 33, calculated valve area 0.71, ejection fraction 40-45%. Coronary angiogram shows severe algaaciq vessel CAD with patent 3/3 grafts. TAVR CTA shows a short annulus diameter of 22.6, a long annulus diameter of 26, annular area 476.3. The sinus of Valsalva diameter is 32.3. The STJ is 31.2. The left coronary height is 13.9. The right coronary height is 18.3. There is no calcium in the LVOT. There is a nodule in the posterior wall of the aorta. There is calcification in the leaflets of the aortic valve. The aortic valve is trileaflet. The STJ has minimal calcification. The minimal luminal diameter on the right is 5.7. The minimal luminal diameter on the left is 6.3. ASSESSMENT AND PLAN 85-year-old female admitted with severe symptomatic aortic stenosis for elective transaortic valve replacement. The patient has been deemed high risk for open aortic valve repair by the heart valve team. Risks and benefits of TAVR including but not limited to neurovascular trauma, infection, bleeding, acute kidney injury, stroke, emergent bypass surgery and have been explained to the patient. The patient understands the risks and she is willing to proceed. Keep n.p.o. for left TF TAVR. Yamini Javed MD, MPH, FACC PRIMARY COUNSELOR/BT /9:56 AM /10:06 AM SAM
[2016-12-27] MEDS ORDERED: HEPARIN-NS/PF INJ 2,500 ML ONE (10:26)
[2016-12-27] MEDS ORDERED: IOHEXOL 350 MG/ML 100 ML BTL (for RAD DIAG) IVCONTRAST ONE (11:35)
[2016-12-27] MEDS ORDERED: NOREPINEPHRINE 4 MG/4 ML AMP ONE (12:00)
[2016-12-27] MEDS ORDERED: SODIUM CHLOR 0.9% 1000 ML INJ 1,000 ML IV SCH (12:21)
--- NOTE | 2016-12-27 12:29 | PD.CARD ---
Cardiology Procedure Note Procedure Name: Left TF TAVR Procedure Date: Dec 27, 2016 Procedure Note: PREOPERATIVE DIAGNOSIS - Severe aortic stenosis with depressed LV systolic function - Symptoms: shortness of breath, fatigue, recurrent heart failure. [place] Heart Association III. - Chronic Systolic Heart Failure - Hypertension, - Hyperlipidemia, - DM II - CAD s/p CABG x3 - PAD - Frailty 2/4 - STS 10.9% POSTOPERATIVE DIAGNOSIS - Severe aortic stenosis with depressed LV systolic function - Symptoms: shortness of breath, fatigue, recurrent heart failure. [place] Heart Association III. - Chronic Systolic Heart Failure - Hypertension, - Hyperlipidemia, - DM II - CAD s/p CABG x3 - PAD - Frailty 2/4 - STS 10.9% OPERATIVE PROCEDURE - Left Transfemoral Transcatheter aortic valve replacement with a 26mm S3 Young Sapiens Valve, - Balloon aortic valvuloplasty with a 20mm True balloon. - Aortic root angiogram. - Placement of a pigtail catheter for angiography. - Temporary pacemaker insertion. - Perclose left common femoral arteries. ANESTHESIA Dr. Bowens SURGEONS Dr. Jennifer Loomis BILL ADJUSTER Websphere Developer: Dr. Keanu Peralta Security Monitor: Dr. Kamron Abdi. Echo support: Dr. Dimitri Christina. INDICATIONS 86-year-old female with severe symptomatic aortic stenosis with progressive symptom of heart failure. The patient has been evaluated for aortic replacement and the patient was felt to be high risk for conventional aortic valve replacement by Dr. Drew and Dr. Loomis on the basis of frailty, STS score and comorbidities. She has been evaluated for and accepted for transcatheter aortic valve replacement (TAVR) after extensive review of patient' s chart. The risk of the procedure have been discussed with the patient at length and consents have been signed to proceed as planned. PROCEDURE DESCRIPTION Under general anesthesia a Transesophageal echocardiogram probe was placed in the esophagus and used throughout the procedure to evaluate aortic valve as well as other valve structures. Intraoperative transesophageal echo confirmed severe aortic stenosis with preserved EF. Then using 1% Lidocaine for local anesthesia and a micropuncture kit a right femoral artery was entered percutaneously and a 6 American sheath was inserted in the left common femoral artery. A the pigtail catheter was advanced over a J 0.035 wire around the arch of the aorta and placed in the noncoronary cusp for aortic angiography in order to get multiple views for deployment of the S3 Debi Valve. Using 1% Lidocaine for local anesthesia and a micropuncture kit the left valve arterial access site was accessed. Angiography was performed through the micropuncture sheath to confirmed adequate position or any complications. Then a 8-American sheath was inserted into the left common femoral artery. This was followed by Preclosing the artery with three Perclose devices. The patient was fully heparinized with an ACT checked. Then a Supracore 0.035 wire was advanced into the ascending aorta and followed by dilating the common femoral artery with a 10-American dilator this was followed with an introduction of a 14 American Young Valve sheath. Then we used an AL-1 over a straight 300 cm Stiff Amplatz wire to cross the aortic valve with the tip left in the mid left ventricular chamber. This was followed by insertion of 6 American angled pigtail and reshaping of the Amplatz. Then pigtail was removed and a 20mm True balloon was the introduced for balloon aortic valvuloplasty (BAV) with rapid pacing. After BAV was performed we inserted a 26mm S3 Young Debi valve. The valve was mounted in a balloon in the ascending aorta and then advanced across the aortic valve using a pigtail catheter, fluoroscopy and the JOAQUIN to confirm position. After confirmation of the position of the valve it was successfully deployed by balloon inflation during rapid pacing. Post deployment, there were no signs of paravalvular leaks on the JOAQUIN. The patient tolerated the procedure well without complications. The catheter was removed. We pulled back the delivery system of the valve which was then removed of the body. Then the delivery sheath was then removed from the right femoral artery and a Perclosed. Finally, the pigtail was removed and then the sheath on the left side were removed with pressure held with a Perclose in the left femoral artery and a Mynx in the vein. This concluded the operation. Postoperative transesophageal echocardiogram demonstrated adequate function of the aortic bioprosthesis. The aortic valve area postprocedure was 2.5cm2 The post implant mean gradient was 6 mmHg. The post implant aortic valve maximal velocity 1.3. There was no aortic insufficiency or paravalvular leaks. COMPLICATIONS None. DISPOSITION -Admit to CVICU in stable condition for post cath care. -DAPT with aspirin and clopidogrel -Early extubation -OOB after bedrest -Telemetry monitoring -EP consult per protocol -Resume home medications MD Kathryn Alexander Pedro R MD Dec 27, 2016 12:29
[2016-12-27] MEDS ORDERED: DEXTROSE 50% IN WATER 50 ML VIAL(D50) IV PUSH PRN (12:30)
[2016-12-27] MEDS ORDERED: ACETAMINOPHEN 325 MG TAB PO PRN (12:30)
[2016-12-27] MEDS ORDERED: GLUCAGON 1 MG/ML VIAL OTHER PRN (12:30)
--- NOTE | 2016-12-27 12:35 | PD.OP ---
cc: Keanu Peralta MD; Jennifer Loomis MD; Kamron Abdi MD Operative Report Date of Surgery: Dec 27, 2016 Preoperative Diagnosis: (1) Severe aortic stenosis (2) Diastolic CHF due to valvular disease Postoperative Diagnosis: same Procedure: Transcatheter aortic valve replacement with a 26 Debi 3 tissue valve Balloon aortic valvuloplasty with a 20 True balloon Percutaneous bilateral femoral artery access with Perclose closure of the left. Aortography Fluoroscopy Anesthesia: Dr. Bowens Surgeon: Jennifer Loomis Co-surgeon - Dr. Mary Medication Aide(s): Sohail Abdi MD Operation and Findings: The risks, benefits, complications, treatment options, and expected outcomes were discussed with the patient. The possibilities of reaction to medication, pulmonary aspiration, perforation of viscus, bleeding, recurrent infection, the need for additional procedures, failure to diagnose a condition, and creating a complication requiring transfusion or operation were discussed with the patient. The patient concurred with the proposed plan, giving informed consent. The site of surgery properly noted/marked. The patient was taken to the hybrid operating room, identified as [facility] and the procedure verified as Transcatheter Aortic Valve Replacement. A Time Out was held and the above information confirmed. Standard monitoring lines and Berry catheter were placed. General anesthesia was induced. The patient was prepped and draped in a sterile fashion. Initially, right femoral arterial access was acquired using a Seldinger percutaneous technique. The details of this procedure were dictated under separate note by cardiology. Once a pigtail was positioned in the aortic annulus and a temporary transvenous pacemaker wire was placed in the right ventricular apex and tested, the left femoral artery was accessed using a needle followed by a guidewire under fluoroscopic guidance. Serial dilators were used to dilate the left femoral artery to 14 Nepali caliber. The Young sheath was then inserted into the external iliac artery up to the distal aorta. Arch aortography was performed to define the implant view. A balloon aortic valvuloplasty was then performed using a 20 x 6 True balloon with the patient being paced at 160 beats per minute. A 26 Oyung Debi 3 transcatheter aortic valve was then positioned in the annulus and deployed with the patient being paced at 160 beats per minute. Following deployment, the valve apparatus was withdrawn and JOAQUIN was performed to assess the valve. The valve had no significant perivalvular leaks. Gradients were then measured and the sheath was slowly withdrawn to the distal left common iliac artery under fluoroscopic guidance. The sheathe was removed and the artery secured with Perclose devices. Protamine was administered. Sterile dressings were placed. At the end of the operation, all sponge, instruments, and needle counts were correct. The patient was transferred to the CVICU in stable condition. Findings: 26 S3 valve deployed without any issues. Implants: 26 Debi 3 tissue valve Complications: none Disposition: to CVICU in stable condition Jennifer Loomis MD Dec 27, 2016 12:35
--- NOTE | 2016-12-27 13:59 | EKG ---
Date Performed: 12/27/2016 Time Performed: 09:05:58 PTAGE: 86 years EKG: Sinus rhythm Demand pacing. Pacemaker rhythm - no further analysis Abnormal ECG PREVIOUS TRACING : 11/17/2016 07.22 DOCTOR: Kamron Abdi Interpretating Date/Time 12/27/2016 13:55:09
[2016-12-27] MEDS ORDERED: CLOPIDOGREL 300 MG TAB PO ONE (14:00)
[2016-12-27] MEDS ORDERED: MISC INFORMATION OTHER SCH (14:00)
[2016-12-27] MEDS: INSULIN NovoLIN REGULAR SUPPLEMENTAL SCALE SQ SCH ×2 (17:00→21:08)
[2016-12-27] MEDS: ACETAMINOPHEN/HYDROcodone 325 MG/5 MG TAB PO PRN (20:23)
[2016-12-27] MEDS ORDERED: ATORVASTATIN 20 MG TAB PO SCH (21:00)
--- NOTE | 2016-12-27 22:59 | PD.PROCEDR ---
Procedure Note Procedure Procedure: Transesophageal Echocardiography Diagnosis: Severe aortic stenosis Indications: Perioperative planning for transcatheter aortic valve replacement Consent: Obtained Anesthesia: Gen. endotracheal anesthesia Description of the Procedure: The patient was sedated and mechanically ventilated. The echo probe was inserted easily and without resistance. At the conclusion of the procedure, the echo probe was removed. Please see detailed echocardiogram report for formal findings. Preliminary Findings (not confirmed): Pre-procedure: 1) severe aortic stenosis 2) Mild LV systolic dysfunction 3) normal RV function 4) mild-mod Aortic regurgitation 5) no pericardial effusion Post-procedure: 1) s/p successful placement of transcatheter bioprosthetic aortic valve 2) no evidence of bioprosthetic valve stenosis 3) no perivalvular leak 4) no pericardial effusion The patient tolerated the procedure well with no hemodynamic instability. There were no immediate complications noted. I personally performed the procedure. Robert Christina MD Dec 27, 2016 22:59
--- NOTE | 2016-12-27 23:06 | PD.CONS ---
[facility] Service Critical Care Medicine Consult Requested By Dr. Mary Reason for Consult perioperative management of medical comorbidities Primary Care Physician Rose Mary Kim MD History of Present Illness Delayed note entry. patient seen and examined on arrival to the CVICU from the OR. This is an 85-year-old female with past medical history of severe symptomatically orthostatic stenosis, coronary artery disease status post CABG, dual-chamber pacemaker, LV systolic function, type 2 diabetes, hypertension, hyperlipidemia, and portal vein thrombus who presents for elective transcatheter valve replacement. She underwent uncomplicated TAVR. She arrives to the CVICU extubated, arousing from anesthesia, in stable condition. Review of Systems ROS Limitations: Clinical Condition, Altered Mental Status ROS Arousing from anesthesia Past Family Social History Allergies: Coded Allergies: No Known Allergies (Verified Allergy, Unknown, 11/17/16) Past Medical History Severe stenosis Coronary artery disease status post CABG 3 in 2012 Dual-chamber pacer, [employer] LV systolic dysfunction EF 40-45% Type 2 diabetes Hypertension Hyponatremia Portal vein thrombus Past Surgical History Cholecystectomy CABG Do whatever pacer Reported Medications Vitamin D3 (Cholecalciferol) 2,000 Unit Cap 2,000 Units PO DAILY Vitamin C (Ascorbic Acid) 250 Mg Tab 250 Mg PO Sucralfate 1 Gram Tab 1 Gm PO BID on empty stomach Pantoprazole (Pantoprazole Sodium) 40 Mg Tab 40 Mg PO DAILY Nitroglycerin SL (Nitroglycerin) 0.4 Mg Subl 0.4 Mg SL DIRECTED PRN ONE TABLET UNDER THE TONGUE NEEDED FOR CHEST PAIN, MAY REPEAT EVERY FIVE MINUTES FOR A TOTAL OF 3 DOSES OR CALL 911 IF NO RELIEF Metformin (Metformin HCl) 500 Mg Tab 500 Mg PO BIDPC With meals Losartan (Losartan Potassium) 100 Mg Tab 100 Mg PO DAILY Hydrocodone-Acetaminophen 7.5-325 mg Tab 1 Tab PO Q6H PRN Ferrous Sulfate 325 Mg (65 Mg Iron) Tablet 325 Mg PO DAILY Carvedilol 25 Mg Tab 25 Mg PO BID Bumetanide 0.5 Mg Tab 0.5 Mg PO DAILY Atorvastatin (Atorvastatin Calcium) 20 Mg Tab 20 Mg PO HS Aspir-81 (Aspirin) 81 Mg Tabdr Alprazolam 0.5 Mg Tab 0.5 Mg PO Q8H PRN Active Ordered Medications See MAR Family History Reviewed the chart and found to be noncontributory to her acute illness Social History Denied tobacco, alcohol, drugs of abuse Physical Exam Vital Signs Vital Signs Date Time Temp Pulse Resp B/P (MAP) Pulse Ox O2 Delivery O2 Flow Rate FiO2 12/27/16 22:00 78 18 142/67 (92) 92 139/40 (73) 12/27/16 22:00 79 12/27/16 21:00 72 12/27/16 21:00 72 18 161/80 (107) 91 146/44 (78) 12/27/16 20:00 75 18 152/67 (95) 96 144/41 (75) 12/27/16 20:00 70 12/27/16 19:30 98.1 76 18 140/70 (93) 96 150/46 (80) 12/27/16 19:30 96 Nasal Cannula 3.00 12/27/16 19:00 70 12/27/16 18:00 75 12/27/16 17:17 74 12/27/16 16:53 98.8 71 16 146/67 (93) 91 148/45 (79) 12/27/16 16:53 73 12/27/16 16:49 16 12/27/16 15:00 61 12/27/16 15:00 97.1 61 16 99 162/52 (88) 12/27/16 12:44 64 12/27/16 12:44 96.4 64 16 99/55 (70) 89 148/58 (88) 12/27/16 08:56 97.5 70 18 142/86 (104) 96 Physical Exam GENERAL: Frail elderly female, lying in bed, arousing from anesthesia, no acute distress HEENT: Normocephalic. Atraumatic. Pupils equal, round, reactive, conjugate. Mucous membranes are moist NECK: Trachea is midline. There is no JVD. Right IJ introducer sheath with transvenous pacer in place, site appears clean dry and intact. CHEST: Unlabored. Equal chest rise. Nasal cannula oxygen. CARDIOVASCULAR: Paced rhythm. Transvenous pacer in place, and not currently using the transvenous pacer to pace, VVI backup rate of 50. Using implanted permanent pacemaker for pacing. ABDOMEN: Soft, nontender, nondistended. No guarding. MUSCULOSKELETAL: Pulses 2+. No peripheral edema. Bilateral groin sites clean dry, dressings intact. No evidence of hematoma. NEUROLOGICAL: RASS -2. Arousing from anesthesia. Moves all extremity's. No focal deficits. Protecting airway. Laboratory Laboratory Tests Test 12/27/16 08:43 White Blood Count 5.7 Red Blood Count 3.95 Hemoglobin 10.8 Hematocrit 32.8 Mean Corpuscular Volume 83.1 Mean Corpuscular Hemoglobin 27.2 Mean Corpuscular Hemoglobin Concent 32.8 Red Cell Distribution Width 15.4 Platelet Count 146 Mean Platelet Volume 8.0 Neutrophils (%) (Auto) 64.7 Lymphocytes (%) (Auto) 21.3 Monocytes (%) (Auto) 12.6 Eosinophils (%) (Auto) 1.2 Basophils (%) (Auto) 0.2 Neutrophils # (Auto) 3.7 Lymphocytes # (Auto) 1.2 Monocytes # (Auto) 0.7 Eosinophils # (Auto) 0.1 Basophils # (Auto) 0.0 CBC Comment DIFF FINAL Differential Comment Prothrombin Time 11.3 Prothromb Time International Ratio 1.0 Activated Partial Thromboplast Time 26.9 Blood Urea Nitrogen 12 Creatinine 0.60 Random Glucose 125 Calcium Level 8.1 Sodium Level 140 Potassium Level 3.3 Chloride Level 106 Carbon Dioxide Level 25.4 Anion Gap 9 Estimat Glomerular Filtration Rate 95 Result Diagram: 12/27/16 0843 12/27/1643 Assessment and Plan Assessment and Plan Assessment: 86-year-old female postop day 0 status post transcatheter aortic valve replacement. Plan: s/p TAVR with groin access 12/27 - frequent neurovascular checks - close monitoring of uop - groin checks - mivf @ 125 cc/hr - anticoagulation per Dr. Mary hypertension - hold home anti-hypertensives - goal sbp 120 - 180 - may restart home meds tomorrow as tolerated Hyperlipidemia - restart home statin Portal Vein thrombus - her outpatient billing department supervisor was called and he recommended our current anti- platelet regimen as adequate for her anticoagulation. AV node dysfunction - remove temporary transvenous pacer - continue PPM at current settings. Critical care medicine will continue to follow along as long as patient remains in the ICU. Robert Christina MD Dec 27, 2016 23:06
[2016-12-28] VITALS (22 sets, daily range): BP systolic 100–166; BP diastolic 42–76; PULSE 68–97; RESP 16–18; TEMP 97.8–98.8; O2SAT 92–96
[2016-12-28] MEDS: ACETAMINOPHEN/HYDROcodone 325 MG/5 MG TAB PO PRN ×2 (01:03→08:35)
[2016-12-28] MEDS ORDERED: LIDOCAINE HCL 5% PATCH T-DERMAL SCH (03:00)
[2016-12-28 05:12] LABS: HEMATOCRIT 33.4 % (35.0-46.0); MEAN CELL VOLUME 82.5 FL (80.0-100.0); MEAN CORPUSCULAR HEMOGLOBIN 27.4 PG (27.0-34.0); MEAN CORPUSCULAR HGB CONC 33.2 % (32.0-36.0); PLATELET COUNT 146 TH/MM3 (150-450); RED BLOOD COUNT 4.05 MIL/MM3 (4.00-5.30); RED CELL DISTRIBUTION WIDTH 15.4 % (11.6-17.2); REVIEW FLAG FINAL; WHITE BLOOD COUNT 6.3 TH/MM3 (4.0-11.0)
[2016-12-28 05:37] LABS: ANION GAP 7 MEQ/L (5-15); AST (GOT) 25 U/L (15-37); BICARBONATE 25.7 MEQ/L (21.0-32.0); BLOOD UREA NITROGEN 8 MG/DL (7-18); CHLORIDE 107 MEQ/L (98-107); GLOMERULAR FILTRATION RATE 107 ML/MIN (>89); POTASSIUM 3.3 MEQ/L (3.5-5.1); SODIUM (NA) 140 MEQ/L (136-145)
[2016-12-28 05:41] LABS: ALKALINE PHOSPHATASE 105 U/L (45-117); ALT (GPT) 18 U/L (10-53); TOTAL BILIRUBIN ADULT 0.5 MG/DL (0.2-1.0)
[2016-12-28] MEDS: INSULIN NovoLIN REGULAR SUPPLEMENTAL SCALE SQ SCH ×3 (08:00→17:30)
[2016-12-28] MEDS ORDERED: ACETAMINOPHEN/HYDROcodone 325 MG/7.5 MG TAB PO PRN (08:30)
[2016-12-28] MEDS ORDERED: POTASSIUM CHLORIDE 20 MEQ CONTROLLED RELEASE TAB PO ONE (08:30)
[2016-12-28] MEDS ORDERED: ALPRAZolam 0.5 MG TAB PO PRN (08:30)
--- NOTE | 2016-12-28 08:35 | PD.CARD.PN ---
Subjective Subjective Remarks no overnight events no cv complaints ambulating without difficulty Objective Medications Current Medications Medications (Trade) Dose Ordered Sig/Laureen Route Start Time Stop Time Status Last Admin Cefazolin Sodium/ Dextrose 50 ml @ 100 mls/hr [employer] PRN IV 12/27/16 08:00 12/30/16 07:59 12/27/16 10:50 (Betadine 5% Antisepsis Kit) 1 applic [employer] PRN EACH NARE 12/27/16 08:00 12/30/16 07:59 (Bactroban Nasal 2% Oint) 1 applic [employer] PRN EACH NARE 12/27/16 08:00 12/30/16 07:59 (Chlorhexidine 2% Cloth) 3 pack [employer] PRN TOPICAL 12/27/16 08:00 12/30/16 07:59 (Lopressor) 25 mg [employer] PRN PO 12/27/16 08:15 12/30/16 08:14 (NovoLIN R INJ) See Protocol Table ... [employer] PRN SQ 12/27/16 08:15 12/30/16 08:14 Miscellaneous Information 1 UNSCH OTHER 12/27/16 14:00 12/29/16 13:00 (Aspirin Chew) 81 mg DAILY PO 12/28/16 09:00 (Plavix) 75 mg DAILY PO 12/28/16 09:00 (D50w (Vial) Inj) 50 ml UNSCH PRN IV PUSH 12/27/16 12:30 (Glucagon Inj) 1 mg UNSCH PRN OTHER 12/27/16 12:30 (NovoLIN R SUPPLEMENTAL SCALE) 1 ACHS SLIDING SCALE SQ 12/27/16 17:00 12/27/16 21:08 (Lipitor) 20 mg HS PO 12/27/16 21:00 12/27/16 20:22 (Ferrous Sulfate) 325 mg DAILY PO 12/28/16 09:00 (Protonix) 40 mg DAILY PO 12/28/16 09:00 (Josephine 5-325 Mg) 1 tab Q6H PRN PO 12/27/16 18:45 12/28/16 01:03 (Lidoderm 5% Patch.12 Hr) 1 patch DAILY@0300 T-DERMAL 12/28/16 03:00 12/28/16 03:27 Miscellaneous Information 1 DAILY@1500 T-DERMAL 12/28/16 15:00 (Lasix Inj) 20 mg ONCE ONCE IV PUSH 12/28/16 08:30 12/28/16 08:31 UNV (KCl) 20 meq ONCE ONCE PO 12/28/16 08:30 12/28/16 08:31 UNV (Xanax) 0.5 mg Q8H PRN PO 12/28/16 08:30 UNV (Coreg) 25 mg BID PO 12/28/16 09:00 UNV (Vitamin D3) 2,000 units DAILY PO 12/28/16 09:00 UNV (Josephine 7.5-325 Mg) 1 tab Q6H PRN PO 12/28/16 08:30 UNV (Cozaar) 100 mg DAILY PO 12/28/16 09:00 UNV (Glucophage) 500 mg BIDPC PO 12/28/16 09:00 UNV Vital Signs / I&O Vital Signs Date Time Temp Pulse Resp B/P (MAP) Pulse Ox O2 Delivery O2 Flow Rate FiO2 12/28/16 06:00 69 12/28/16 05:00 72 12/28/16 05:00 72 18 152/68 (96) 96 Arterial Line 12/28/16 04:00 72 12/28/16 04:00 72 18 128/60 (82) 95 139/45 (76) 12/28/16 03:00 74 12/28/16 03:00 95 Nasal Cannula 2.00 12/28/16 03:00 98.8 78 18 128/60 (82) 95 129/42 (71) 12/28/16 02:00 80 16 137/63 (87) 94 141/44 (76) 12/28/16 02:00 80 12/28/16 01:00 78 12/28/16 01:00 78 18 151/66 (94) 95 135/54 (81) 12/28/16 00:00 75 12/28/16 00:00 75 18 138/58 (84) 96 144/76 (98) 12/27/16 23:00 74 12/27/16 23:00 94 Nasal Cannula 2.00 12/27/16 23:00 97.4 77 18 131/60 (83) 94 139/49 (79) 12/27/16 22:55 90 Room Air 12/27/16 22:00 78 18 142/67 (92) 92 139/40 (73) 12/27/16 22:00 79 12/27/16 21:00 72 12/27/16 21:00 72 18 161/80 (107) 91 146/44 (78) 12/27/16 20:00 75 18 152/67 (95) 96 144/41 (75) 12/27/16 20:00 70 12/27/16 20:00 92 Room Air 12/27/16 19:30 98.1 76 18 140/70 (93) 96 150/46 (80) 12/27/16 19:30 96 Nasal Cannula 3.00 12/27/16 19:00 70 12/27/16 18:00 75 12/27/16 17:17 74 12/27/16 16:53 98.8 71 16 146/67 (93) 91 148/45 (79) 12/27/16 16:53 73 12/27/16 16:49 16 12/27/16 15:00 61 12/27/16 15:00 97.1 61 16 99 162/52 (88) 12/27/16 12:44 64 12/27/16 12:44 96.4 64 16 99/55 (70) 89 148/58 (88) 12/27/16 08:56 97.5 70 18 142/86 (104) 96 I/O 12/27/16 12/27/16 12/27/16 12/28/16 12/28/16 12/28/16 06:59 14:59 22:59 06:59 14:59 22:59 Intake Total 1000 ml 245 ml 300 ml Output Total 2050 ml 1450 ml 900 ml Balance -1050 ml -1205 ml -600 ml Intake Oral 120 ml 300 ml IV Total 125 ml Other 1000 ml Output Urine Total 2050 ml 1450 ml 900 ml # Bowel Movements 0 Physical Exam GENERAL: Well-nourished, well-developed patient. SKIN: Warm and dry. HEAD: Normocephalic. EYES: No scleral icterus. No injection or drainage. NECK: Supple, trachea midline. + JVD or lymphadenopathy. CARDIOVASCULAR: Regular rate and rhythm without murmurs, gallops, or rubs. RESPIRATORY: Breath sounds equal bilaterally. No accessory muscle use. +rales GASTROINTESTINAL: Abdomen soft, non-tender, nondistended. EXTREMITIES: No cyanosis, or edema. NEUROLOGICAL: Awake, alert, and oriented x 3. Non-focal. Laboratory Laboratory Tests Test 12/27/16 08:43 12/28/16 04:45 White Blood Count 5.7 TH/MM3 6.3 TH/MM3 Red Blood Count 3.95 MIL/MM3 4.05 MIL/MM3 Hemoglobin 10.8 GM/DL 11.1 GM/DL Hematocrit 32.8 % 33.4 % Mean Corpuscular Volume 83.1 FL 82.5 FL Mean Corpuscular Hemoglobin 27.2 PG 27.4 PG Mean Corpuscular Hemoglobin Concent 32.8 % 33.2 % Red Cell Distribution Width 15.4 % 15.4 % Platelet Count 146 TH/MM3 146 TH/MM3 Mean Platelet Volume 8.0 FL 8.1 FL Neutrophils (%) (Auto) 64.7 % Lymphocytes (%) (Auto) 21.3 % Monocytes (%) (Auto) 12.6 % Eosinophils (%) (Auto) 1.2 % Basophils (%) (Auto) 0.2 % Neutrophils # (Auto) 3.7 TH/MM3 Lymphocytes # (Auto) 1.2 TH/MM3 Monocytes # (Auto) 0.7 TH/MM3 Eosinophils # (Auto) 0.1 TH/MM3 Basophils # (Auto) 0.0 TH/MM3 CBC Comment DIFF FINAL Differential Comment Prothrombin Time 11.3 SEC Prothromb Time International Ratio 1.0 RATIO Activated Partial Thromboplast Time 26.9 SEC Blood Urea Nitrogen 12 MG/DL 8 MG/DL Creatinine 0.60 MG/DL 0.54 MG/DL Random Glucose 125 MG/DL 138 MG/DL Calcium Level 8.1 MG/DL 8.0 MG/DL Sodium Level 140 MEQ/L 140 MEQ/L Potassium Level 3.3 MEQ/L 3.3 MEQ/L Chloride Level 106 MEQ/L 107 MEQ/L Carbon Dioxide Level 25.4 MEQ/L 25.7 MEQ/L Anion Gap 9 MEQ/L 7 MEQ/L Estimat Glomerular Filtration Rate 95 ML/MIN 107 ML/MIN Total Protein 6.4 GM/DL Albumin 3.2 GM/DL Alkaline Phosphatase 105 U/L Aspartate Amino Transf (AST/SGOT) 25 U/L Alanine Aminotransferase (ALT/SGPT) 18 U/L Total Bilirubin 0.5 MG/DL Assessment and Plan Problem List: (1) Severe aortic stenosis ICD Codes: I35.0 - Nonrheumatic aortic (valve) stenosis Plan: s/p Left TF 26mm S3 Valve. Acute on chronic diastolic heart failure. Afebrile and HD stable. No complaints. Recommendations: 1. DAPT ASA and Plavix 2. Restart Home meds 3. Encourage ambulation and incentive spirometry 4. PT/OT 5. Lasix 20mg IV (2) Diastolic CHF due to valvular disease ICD Codes: I38 - Endocarditis, valve unspecified; I50.30 - Unspecified diastolic (congestive) heart failure Keanu Peralta MD Dec 28, 2016 08:35
[2016-12-28] MEDS ORDERED: ASPI81CH25 PO (08:51)
[2016-12-28] MEDS ORDERED: PLAV75TA29 PO (08:51)
--- NOTE | 2016-12-28 08:58 | HHI.DS ---
Discharge Summary Admission Date Dec 27, 2016 at 07:40 Discharge Date: Dec 28, 2016 Admitting Diagnosis TAVR Severe Diastolic Heart Failure (1) Severe aortic stenosis Diagnosis: Principal ICD Codes: I35.0 - Nonrheumatic aortic (valve) stenosis (2) Diastolic CHF due to valvular disease ICD Codes: I38 - Endocarditis, valve unspecified; I50.30 - Unspecified diastolic (congestive) heart failure Procedures TAVR Brief History 86 y/o F with severe symptomatic NYHA III, CAD s/p CABG, PPM admitted for elective TAVR CBC/BMP: 12/28/16 0445 12/28/16 0445 Significant Findings Laboratory Tests Test 12/27/16 08:43 12/28/16 04:45 Red Blood Count 3.95 MIL/MM3 (4.00-5.30) Hemoglobin 10.8 GM/DL (11.6-15.3) 11.1 GM/DL (11.6-15.3) Hematocrit 32.8 % (35.0-46.0) 33.4 % (35.0-46.0) Platelet Count 146 TH/MM3 (150-450) 146 TH/MM3 (150-450) Monocytes (%) (Auto) 12.6 % (0.0-8.0) Random Glucose 125 MG/DL (74-106) 138 MG/DL (74-106) Calcium Level 8.1 MG/DL (8.5-10.1) 8.0 MG/DL (8.5-10.1) Potassium Level 3.3 MEQ/L (3.5-5.1) 3.3 MEQ/L (3.5-5.1) Albumin 3.2 GM/DL (3.4-5.0) PE at Discharge GENERAL: Well-nourished, well-developed patient. SKIN: Warm and dry. HEAD: Normocephalic. EYES: No scleral icterus. No injection or drainage. NECK: Supple, trachea midline. No JVD or lymphadenopathy. CARDIOVASCULAR: Regular rate and rhythm without murmurs, gallops, or rubs. RESPIRATORY: Breath sounds equal bilaterally. No accessory muscle use. GASTROINTESTINAL: Abdomen soft, non-tender, nondistended. EXTREMITIES: No cyanosis, or edema. NEUROLOGICAL: Awake, alert, and oriented x 3. Non-focal. Hospital Course Ms. Graham underwent successful TAVR with a 26mm S3 valve thru the Left TF. No complications. No events overnight. Acute of chronic diastolic heart failure which was treated with IV Lasix. Ambulating without difficulty and chest pain free. Stable to be discahrge home today. Pt Condition on Discharge: Good Discharge Disposition: Discharge Home Discharge Instructions DIET: Follow Instructions for: As Tolerated, No Restrictions Speech Therapy-Diet Recommenda: Regular Activities you can perform: Weight Bearing as [place] New Medications: Aspirin (Aspirin Low Strength) 81 Mg Chew 81 MG PO DAILY for Angina for 30 Days, #30 EA Clopidogrel (Plavix) 75 Mg Tab 75 MG PO DAILY for Angina for 30 Days, #30 TAB Continued Medications: Alprazolam (Alprazolam) 0.5 Mg Tab 0.5 MG PO Q8H PRN for ANXIETY, TAB 0 Refills Ascorbic Acid (Vitamin C) 250 Mg Tab 250 MG PO for Nutritional Supplement, TAB [address] (Aspir-81) 81 Mg Tabdr Atorvastatin (Atorvastatin) 20 Mg Tab 20 MG PO HS for Cholesterol Management, #30 TAB 0 Refills Bumetanide (Bumetanide) 0.5 Mg Tab 0.5 MG PO DAILY, TAB 0 Refills Carvedilol (Carvedilol) 25 Mg Tab 25 MG PO BID, #60 TAB 0 Refills Cholecalciferol (Vitamin D3) 2,000 Unit Cap 2000 UNITS PO DAILY for Nutritional Supplement, #1 BOTTLE 0 Refills Ferrous Sulfate (Ferrous Sulfate) 325 Mg (65 Mg Iron) Tablet 325 MG PO DAILY for Nutritional Supplement, #30 TAB 0 Refills Hydrocodone-Acetaminophen (Hydrocodone-Acetaminophen) 7.5-325 mg Tab 1 TAB PO Q6H PRN for PAIN, #30 TAB 0 Refills Losartan (Losartan) 100 Mg Tab 100 MG PO DAILY for Blood Pressure Management, #30 TAB 0 Refills Metformin (Metformin) 500 Mg Tab 500 MG PO BIDPC for Blood Sugar Management, #60 TAB 0 Refills With meals Nitroglycerin SL (Nitroglycerin SL) 0.4 Mg Subl 0.4 MG SL DIRECTED PRN for CHEST PAIN, #100 TAB.SL 0 Refills ONE TABLET UNDER THE TONGUE NEEDED FOR CHEST PAIN, MAY REPEAT EVERY FIVE MINUTES FOR A TOTAL OF 3 DOSES OR CALL 911 IF NO RELIEF Pantoprazole (Pantoprazole) 40 Mg Tab 40 MG PO DAILY for Reflux, #30 TAB 0 Refills Sucralfate (Sucralfate) 1 Gram Tab 1 GM PO BID for Duodenal ulcer, #90 TAB 0 Refills on empty stomach Keanu Peralta MD Dec 28, 2016 08:58
[2016-12-28] MEDS ORDERED: PANTOPRAZOLE SOD 40 MG DELAYED RELEASE TAB PO SCH (09:00)
[2016-12-28] MEDS ORDERED: LOSARTAN 50 MG TAB PO SCH (09:00)
[2016-12-28] MEDS ORDERED: CLOPIDOGREL 75 MG TAB PO SCH (09:00)
[2016-12-28] MEDS ORDERED: ASPIRIN 81 MG CHEW TAB PO SCH (09:00)
[2016-12-28] MEDS ORDERED: FERROUS SULFATE 325 MG (65 MG ELEMENTAL IRON) TAB PO SCH (09:00)
[2016-12-28] MEDS ORDERED: FUROSEMIDE 20 MG/2 ML VIAL IV PUSH ONE (10:00)
--- NOTE | 2016-12-28 10:29 | PD.CAR.PN ---
CVT Progress Note Subjective/Hospital Course: 85-year-old female with past medical history of severe symptomatically aortic stenosis, coronary artery disease status post CABG, dual-chamber pacemaker, LV systolic function, diastolic CHF 2/2 valvular disease type 2 diabetes, hypertension, hyperlipidemia, and portal vein thrombus who presents for elective transcatheter valve replacement. 12/27 Transcatheter aortic valve replacement with a 26 Debi 3 tissue valve Balloon aortic valvuloplasty with a 20 True balloon Percutaneous bilateral femoral artery access with Perclose closure of the left. 12/28 doing well , on room air TPP removed cordis to still be removed both groin dressing intact , no hematoma note d+ distal pulses for possible dc today Objective: GENERAL: SKIN: Warm and dry. dressing to both groin, no hematoma HEAD: Normocephalic. EYES: No scleral icterus. No injection or drainage. NECK: Supple, trachea midline. No JVD or lymphadenopathy. CARDIOVASCULAR: Regular rate and rhythm without murmurs, gallops, or rubs. RESPIRATORY: Breath sounds equal bilaterally. No accessory muscle use. good pulses both feet GASTROINTESTINAL: Abdomen soft, non-tender, nondistended. MUSCULOSKELETAL: No cyanosis, or edema. BACK: Nontender without obvious deformity. No CVA tenderness. Vital Signs Date Time Temp Pulse Resp B/P (MAP) Pulse Ox O2 Delivery O2 Flow Rate FiO2 12/28/16 10:00 88 12/28/16 09:00 84 12/28/16 08:00 82 12/28/16 07:30 94 Room Air 12/28/16 07:30 98.8 79 18 159/70 (99) 94 12/28/16 07:00 68 12/28/16 06:00 69 12/28/16 05:00 72 12/28/16 05:00 72 18 152/68 (96) 96 Arterial Line 12/28/16 04:00 72 12/28/16 04:00 72 18 128/60 (82) 95 139/45 (76) 12/28/16 03:00 74 12/28/16 03:00 95 Nasal Cannula 2.00 12/28/16 03:00 98.8 78 18 128/60 (82) 95 129/42 (71) 12/28/16 02:00 80 16 137/63 (87) 94 141/44 (76) 12/28/16 02:00 80 12/28/16 01:00 78 12/28/16 01:00 78 18 151/66 (94) 95 135/54 (81) 12/28/16 00:00 75 12/28/16 00:00 75 18 138/58 (84) 96 144/76 (98) 12/27/16 23:00 74 12/27/16 23:00 94 Nasal Cannula 2.00 12/27/16 23:00 97.4 77 18 131/60 (83) 94 139/49 (79) 12/27/16 22:55 90 Room Air 12/27/16 22:00 78 18 142/67 (92) 92 139/40 (73) 12/27/16 22:00 79 12/27/16 21:00 72 12/27/16 21:00 72 18 161/80 (107) 91 146/44 (78) 12/27/16 20:00 75 18 152/67 (95) 96 144/41 (75) 12/27/16 20:00 70 12/27/16 20:00 92 Room Air 12/27/16 19:30 98.1 76 18 140/70 (93) 96 150/46 (80) 12/27/16 19:30 96 Nasal Cannula 3.00 12/27/16 19:00 70 12/27/16 18:00 75 12/27/16 17:17 74 12/27/16 16:53 98.8 71 16 146/67 (93) 91 148/45 (79) 12/27/16 16:53 73 12/27/16 16:49 16 12/27/16 15:00 61 12/27/16 15:00 97.1 61 16 99 162/52 (88) 12/27/16 12:44 64 12/27/16 12:44 96.4 64 16 99/55 (70) 89 148/58 (88) Labs: Laboratory Tests Test 12/28/16 04:45 White Blood Count 6.3 TH/MM3 (4.0-11.0) Red Blood Count 4.05 MIL/MM3 (4.00-5.30) Hemoglobin 11.1 GM/DL (11.6-15.3) Hematocrit 33.4 % (35.0-46.0) Mean Corpuscular Volume 82.5 FL (80.0-100.0) Mean Corpuscular Hemoglobin 27.4 PG (27.0-34.0) Mean Corpuscular Hemoglobin Concent 33.2 % (32.0-36.0) Red Cell Distribution Width 15.4 % (11.6-17.2) Platelet Count 146 TH/MM3 (150-450) Mean Platelet Volume 8.1 FL (7.0-11.0) Blood Urea Nitrogen 8 MG/DL (7-18) Creatinine 0.54 MG/DL (0.50-1.00) Random Glucose 138 MG/DL (74-106) Total Protein 6.4 GM/DL (6.4-8.2) Albumin 3.2 GM/DL (3.4-5.0) Calcium Level 8.0 MG/DL (8.5-10.1) Alkaline Phosphatase 105 U/L (45-117) Aspartate Amino Transf (AST/SGOT) 25 U/L (15-37) Alanine Aminotransferase (ALT/SGPT) 18 U/L (10-53) Total Bilirubin 0.5 MG/DL (0.2-1.0) Sodium Level 140 MEQ/L (136-145) Potassium Level 3.3 MEQ/L (3.5-5.1) Chloride Level 107 MEQ/L (98-107) Carbon Dioxide Level 25.7 MEQ/L (21.0-32.0) Anion Gap 7 MEQ/L (5-15) Estimat Glomerular Filtration Rate 107 ML/MIN (>89) Result Diagram: 12/28/1644412/28/16444 (1) Severe aortic stenosis Plan: s/p Left TF 26mm S3 Valve. Acute on chronic diastolic heart failure. Afebrile and HD stable. No complaints. 1. DAPT ASA and Plavix 2. Restart Home meds 3. Encourage ambulation and incentive spirometry 4. PT/OT 5. Lasix 20mg IV dc home later today defer further orders per Dr Mary will sign off (2) Diastolic CHF due to valvular disease Xenia Hernandez Dec 28, 2016 10:29
[2016-12-28] MEDS ORDERED: CARVEDILOL 12.5 MG TAB PO SCH (10:30)
[2016-12-28] MEDS ORDERED: CHOLECALCIFEROL (VIT D3) 1000 UNIT TAB PO SCH (10:30)
[2016-12-28] MEDS: metFORMIN HCL 500 MG TAB PO SCH ×2 (10:32→18:51)
--- NOTE | 2016-12-28 12:52 | EKG ---
Date Performed: 12/28/2016 Time Performed: 05:42:14 PTAGE: 86 years EKG: Sinus rhythm Left axis deviation Left bundle branch block Run of atrial tachycardia or atrial ectopy at the end o f the EKG Abnormal ECG PREVIOUS TRACING : 12/27/2016 09.05 Compared to prior tracing no significant change DOCTOR: Yaya Santana Interpretating Date/Time 12/28/2016 12:51:28
[2016-12-28] MEDS ORDERED: REMOVE OLD PATCH T-DERMAL SCH (15:00)
== END 2016-12-28 19:20 | disposition home or self-care (01) | DRG 266 ==
LOC: HDIC 07:40 → HCVI 12:41 → HCPC 15:56
PROVIDERS: ADMIT Radiology Vascular & Interventional Radiology; ATTEND Radiology Vascular & Interventional Radiology
PROC: 02RF38Z Replacement of Aortic Valve with Zooplastic Tissue, Percutaneous Approach (ICD-10-PCS; principal; 2016-12-27 11:30)
PROC: 027F3ZZ Dilation of Aortic Valve, Percutaneous Approach (ICD-10-PCS; 2016-12-27 11:30)
PROC: B246ZZ4 Ultrasonography of Right and Left Heart, Transesophageal (ICD-10-PCS; 2016-12-27 11:30)
DX: I35.0 Nonrheumatic aortic (valve) stenosis (principal); I81 Portal vein thrombosis; I50.43 Acute on chronic combined systolic (congestive) and diastolic (congestive) heart failure; I11.0 Hypertensive heart disease with heart failure; E11.9 Type 2 diabetes mellitus without complications; I25.10 Atherosclerotic heart disease of native coronary artery without angina pectoris; E78.5 Hyperlipidemia, unspecified; I35.1 Nonrheumatic aortic (valve) insufficiency; R54 Age-related physical debility; Z79.84 Long term (current) use of oral hypoglycemic drugs; Z79.82 Long term (current) use of aspirin; Z95.0 Presence of cardiac pacemaker; Z95.1 Presence of aortocoronary bypass graft; Z00.6 Encounter for examination for normal comparison and control in clinical research program
CPT/HCPCS: 33210; 33361; 80048; 80053; 82948; 85002; 85025; 85027; 85610; 85730; 86850; 86900; 86901; 86920; 92986; 93005; 94150; C1760; C1769; C1893; G0269; J0690; J1644; J1940; J2720; J3370; J7050; Q9967